=== PATIENT | female | born 1980 | race Caucasian/White ===

== ENCOUNTER 2016-09-24 18:59 | Emergency (ER) | payer MEDICAID, MEDICARE ==
[~2016-09-24] VITALS: Ht 154.9 cm; Wt 81.6 kg
[2016-09-24 19:07] VITALS: BP 105/68; PULSE 97; RESP 16; TEMP 99.5; O2SAT 97
--- NOTE | 2016-09-24 19:32 | NUR ---
pt presents to ED with c/o coughing, fever, flu-like symptoms x2 weeks, generalized body ache 4/10. Denies dizziness. gait stable. A&Ox4, Denies SOb or chestpain, denies N.V.D, skin intact. will continue to monitor
--- NOTE | 2016-09-24 19:45 | NUR ---
JASEN rolle evaluating pt in the hallway
[2016-09-24] MEDS ORDERED: IBUPROFEN 600 MG TABLET PO ONE (20:00)
--- NOTE | 2016-09-24 20:00 | NUR ---
pt discovered to feel lightheaded and dizzy, stated that she has trouble to breath. [employer] Maggie notified for evaluation, pt moved to bed 6.
[2016-09-24] MEDS ORDERED: ACETAMINOPHEN 500 MG TABLET PO ONE (20:15)
[2016-09-24] MEDS ORDERED: KETOROLAC TROMETHAMINE 30 MG VIAL IVP ONE (20:15)
[2016-09-24] MEDS ORDERED: NACL 0.9% 1,000 ML IV ONE (20:15)
[2016-09-24 20:41] LABS: CALCIUM 8.3 mg/dL (8.4-11.0); CREATININE 0.99 mg/dL (0.55-1.30)
[2016-09-24 20:43] LABS: BASOPHILS # (AUTO) 0.1 K/uL (0.0-0.2); BASOPHILS % (AUTO) 1.4 % (0.0-2.0); EOSINOPHILS # (AUTO) 0.1 K/uL (0.0-0.4); EOSINOPHILS % (AUTO) 1.3 % (0.0-4.0); HEMATOCRIT 35.9 % (36-48); HEMOGLOBIN 12.6 g/dL (12.0-16.0); LYMPHOCYTES # (AUTO) 0.5 K/uL (1.0-5.5); LYMPHOCYTES % (AUTO) 11.6 % (20.5-51.5); MEAN CORPUSCULAR HEMOGLOBIN 29 pg (27-31); MEAN CORPUSCULAR HGB CONC 35 % (32-36); MEAN CORPUSCULAR VOLUME 83 fL (79.0-98.0); MONOCYTES # (AUTO) 0.6 K/uL (0.0-1.0); NEUTROPHILS # (AUTO) 2.7 K/uL (1.8-7.7); NEUTROPHILS % (AUTO) 70.7 % (40.0-70.0); PLATELET COUNT (AUTO) 246 K/uL (130-430); RED BLOOD CELL COUNT(AUTO) 4.33 MIL/uL (4.2-6.2)
[2016-09-24 20:45] LABS: ALBUMIN 3.4 g/dL (3.4-4.8); TOTAL BILIRUBIN 0.3 mg/dL (0.0-1.0); TOTAL PROTEIN, SERUM 7.5 g/dL (6.4-8.3)
--- NOTE | 2016-09-24 20:55 | NUR ---
pt in bed, stated she feels better, breathing even, non-labored, O2 sat 98% on RA, HR 88. Will continue to monitor
[2016-09-24 21:20] VITALS: BP 106/63; PULSE 83; RESP 16; TEMP 98.6; O2SAT 97
--- NOTE | 2016-09-24 21:20 | NUR ---
Patient given written and verbal discharge instructions and verbalizes understanding. ER MD Orourke discussed with patient the results and treatment provided. Patient in stable condition. ID arm band removed. IV catheter removed intact and dressing applied, no active bleeding. Rx of azithromycin & motrin given. Patient educated on pain management and to follow up with PMD. Pain Scale 0/10. Opportunity for questions provided and answered.
== END 2016-09-24 21:20 | disposition home or self-care (01) ==
LOC: SED 18:59
DX: J20.9 Acute bronchitis, unspecified (principal); R74.0 Nonspecific elevation of levels of transaminase and lactic acid dehydrogenase [LDH]
CPT/HCPCS: 36415; 71010; 80053; 81025; 85025; 87040; 96361; 96374; 99285; J1885; J7030

== ENCOUNTER 2017-10-07 19:44 | Emergency (ER) | payer MEDICAID ==
[~2017-10-07] VITALS: Ht 154.9 cm; Wt 80.7 kg
[2017-10-07 19:51] VITALS: BP_SYST 118
[2017-10-07] MEDS ORDERED: DIPH-TET-PERTUS Vaccine 0.5 ML VIAL (ADACEL) I.M. ONE (20:00)
[2017-10-07] MEDS ORDERED: CEPHALEXIN 500 MG CAPSULE PO ONE (20:00)
[2017-10-07] MEDS ORDERED: BACITRACIN 1 GM OINT TP ONE (20:00)
[2017-10-07 20:34] VITALS: BP_SYST 116
== END 2017-10-07 20:34 | disposition home or self-care (01) ==
LOC: SED 19:44
DX: T23.202A Burn of second degree of left hand, unspecified site, initial encounter (principal); R03.0 Elevated blood-pressure reading, without diagnosis of hypertension; X10.2XXA Contact with fats and cooking oils, initial encounter; Y93.89 Activity, other specified; Y92.89 Other specified places as the place of occurrence of the external cause; Y99.8 Other external cause status
CPT/HCPCS: 90715; 99284